=== PATIENT | female | born 1995 | race Hispanic/Latino ===

== ENCOUNTER 2021-08-09 03:28 | Emergency (ER) | payer SELFPAY ==
[2021-08-09] MEDS ORDERED: LORazepam 1 MG TAB PO ONE ×2 (04:55→08:03)
--- NOTE | 2021-08-09 05:00 | Emergency Department Report ---
ED Anxiety HPI - General Chief Complaint: Anxiety Stated Complaint: ANXIETY Source: patient, EMS Mode of arrival: Ambulatory - History of Present Illness MD Complaint: anxiety Provoking factors: none known Improves With: medication Associated symptoms: denies: chest pain, shortness of breath, palpitations - Related Data Home Medications: Previous Rx's Medication Instructions Recorded Last Taken Type LORazepam [Ativan] 0.5 mg PO QHS #5 tab 08/09/21 Unknown Rx ED Review of Systems ROS: Stated complaint: ANXIETY Other details as noted in HPI Comment: All other systems reviewed and negative Psychiatric: anxiety. denies: homicidal thoughts, suicidal thoughts ED Past Medical Hx - Medications Home Medications: Home Medications Medication Instructions Recorded Confirmed Last Taken Type LORazepam [Ativan] 0.5 mg PO QHS #5 tab 08/09/21 Unknown Rx ED Physical Exam - General Limitations: No Limitations General appearance: alert - Head Head exam: Present: atraumatic, normocephalic - Eye Eye exam: Present: normal appearance, PERRL, EOMI - ENT ENT exam: Present: mucous membranes moist - Neurological Exam Neurological exam: Present: alert, oriented X3 - Psychiatric Psychiatric exam: Present: normal affect, anxious ED Course Vital Signs 08/09/21 03:34 Temperature 98.7 F Pulse Rate 91 H Respiratory 16 Rate Blood Pressure 130/98 [Left] O2 Sat by Pulse 98 Oximetry Critical care attestation.: If time is entered above; I have spent that time in minutes in the direct care of this critically ill patient, excluding procedure time. ED Disposition Clinical Impression: Anxiety, Insomnia Disposition: 01 HOME / SELF CARE / HOMELESS Is pt being admited?: No Condition: Stable Additional Instructions: Take the medications as prescribed go home and get some sleep. Please find a primary physician or give Dr. Ferguson a call for follow-up Prescriptions: LORazepam [Ativan] 0.5 mg PO QHS #5 tab Referrals: PRIMARY CAREMD [Primary Care Provider] - 3-5 Days MINOO FERGUSON MD [Staff Physician] - 3-5 Days
[2021-08-09 08:03] VITALS: BP 100/74
== END 2021-08-09 08:13 | disposition home or self-care (01) ==
LOC: ED 03:28
DX: F41.9 Anxiety disorder, unspecified (principal); G47.00 Insomnia, unspecified
CPT/HCPCS: 99284